=== PATIENT | female | born 1950 | race Two or more races ===

== ENCOUNTER 2018-09-02 17:02 | Emergency (ER) | payer OTHER ==
[~2018-09-02] VITALS: Ht 165.1 cm; Wt 107.5 kg
[~2018-09-02 17:02] MED LIST: ADVAIR 5001 DISK W/1 IH; ASA81 MG PO; ATROVENT 00.5 MG/2.5 IH; CATAPRES0.2 MG PO; HYZAAR 100/25 T1 TAB PO; MEDROL4 MG PO; PROVENTIL0.5 ML/2.5 IH; PROVENTIL3 ML/2.5 M IH; PROVENTIL5 MG/ML IH; SINGULAIR10 MG PO; TUSSIONEX PENNKI5 ML PO; ZITHROMAX500 MG PO
[2018-09-02] MEDS ORDERED: JANUVIA25 MG PO (17:31)
[2018-09-02] MEDS ORDERED: GLUMETZA500 MG (17:31)
[2018-09-02] MEDS ORDERED: ZOCOR20 MG (17:32)
== END 2018-09-02 23:51 | disposition home or self-care (01) ==
LOC: ER 17:02
DX: J11.1 Influenza due to unidentified influenza virus with other respiratory manifestations (principal)

== ENCOUNTER 2018-11-02 14:07 | Outpatient (CLI) | payer OTHER | END 2018-11-02 14:17 | disposition home or self-care (01) | LOC: RAD 14:07 | DX: R07.89 Other chest pain (principal) ==

== ENCOUNTER → 2018-11-02 | Outpatient (CLI) | payer OTHER ==
[~2018-11-02] MED LIST changes: +GLUMETZA500 MG; +JANUVIA25 MG PO; +ZOCOR20 MG
== END | disposition home or self-care (01) ==
LOC: NUCLEAR 11:00
DX: I67.9 Cerebrovascular disease, unspecified (principal); I73.9 Peripheral vascular disease, unspecified; I67.89 Other cerebrovascular disease

== ENCOUNTER 2018-11-07 22:44 | Inpatient (IN) | payer OTHER ==
[~2018-11-07] VITALS: Ht 182.9 cm; Wt 5.0 kg
[2018-11-16] MEDS ORDERED: LOSARTAN-HCTZ1 EACH PO (14:38)
[2018-11-16] MEDS ORDERED: METOPROLOL TART50 MG PO (14:38)
[2018-11-16] MEDS ORDERED: CLONIDINE HCL0.2 MG PO (14:39)
[2018-11-16] MEDS ORDERED: XOPENEX0.63 MG/3 IH (14:40)
[2018-11-16] MEDS ORDERED: BUDEO.25 IH (14:40)
[2018-11-16] MEDS ORDERED: XARELTO20 MG PO (14:48)
[2018-11-16] MEDS ORDERED: GUAIFENESIN AC C5 ML PO (14:48)
== END 2018-11-16 17:22 | disposition home or self-care (01) | DRG 202 ==
LOC: ER 22:44 → MEDJ 11-08 11:26 → ICU-2 11-08 11:26 → MEDJ 11-11 08:34
PROVIDERS: ADMIT Internal Medicine
PROC: 3E0F7GC Introduction of Other Therapeutic Substance into Respiratory Tract, Via Natural or Artificial Opening (ICD-10-PCS; principal; 2018-11-08)
PROC: BB24ZZZ Computerized Tomography (CT Scan) of Bilateral Lungs (ICD-10-PCS; 2018-11-08)
PROC: 4A12X4Z Monitoring of Cardiac Electrical Activity, External Approach (ICD-10-PCS; 2018-11-11)
PROC: B246ZZZ Ultrasonography of Right and Left Heart (ICD-10-PCS; 2018-11-14)
DX: J45.31 Mild persistent asthma with (acute) exacerbation (principal); I50.23 Acute on chronic systolic (congestive) heart failure; N17.8 Other acute kidney failure; J44.1 Chronic obstructive pulmonary disease with (acute) exacerbation; I13.0 Hypertensive heart and chronic kidney disease with heart failure and stage 1 through stage 4 chronic kidney disease, or unspecified chronic kidney disease; J45.32 Mild persistent asthma with status asthmaticus; E11.65 Type 2 diabetes mellitus with hyperglycemia; E66.01 Morbid (severe) obesity due to excess calories; E78.49 Other hyperlipidemia; J09.X2 Influenza due to identified novel influenza A virus with other respiratory manifestations; I48.0 Paroxysmal atrial fibrillation; N18.9 Chronic kidney disease, unspecified

== ENCOUNTER 2019-04-21 18:43 | Emergency (ER) | payer OTHER ==
[~2019-04-21] VITALS: Ht 167.6 cm; Wt 127.0 kg
[~2019-04-21 18:43] MED LIST changes: +BUDEO.25 IH; +CLONIDINE HCL0.2 MG PO; +GUAIFENESIN AC C5 ML PO; +LOSARTAN-HCTZ1 EACH PO; +METOPROLOL TART50 MG PO; +XARELTO20 MG PO; +XOPENEX0.63 MG/3 IH
== END 2019-04-21 23:22 | disposition home or self-care (01) ==
LOC: ER 18:43
DX: J18.8 Other pneumonia, unspecified organism (principal); J45.998 Other asthma

== ENCOUNTER 2019-04-23 23:23 | Inpatient (IN) | payer OTHER ==
[~2019-04-23] VITALS: Ht 167.6 cm; Wt 124.7 kg
== END 2019-05-08 18:13 | disposition home or self-care (01) | DRG 194 ==
LOC: ER 23:23 → MEDJ 04-24 13:40
PROVIDERS: ADMIT Internal Medicine
PROC: 3E0F7GC Introduction of Other Therapeutic Substance into Respiratory Tract, Via Natural or Artificial Opening (ICD-10-PCS; principal; 2019-04-24)
PROC: 4A033R1 Measurement of Arterial Saturation, Peripheral, Percutaneous Approach (ICD-10-PCS; 2019-04-24)
PROC: B54DZZZ Ultrasonography of Bilateral Lower Extremity Veins (ICD-10-PCS; 2019-04-26)
DX: J16.8 Pneumonia due to other specified infectious organisms (principal); J45.32 Mild persistent asthma with status asthmaticus; J44.1 Chronic obstructive pulmonary disease with (acute) exacerbation; J45.21 Mild intermittent asthma with (acute) exacerbation; N17.8 Other acute kidney failure; I13.0 Hypertensive heart and chronic kidney disease with heart failure and stage 1 through stage 4 chronic kidney disease, or unspecified chronic kidney disease; E66.01 Morbid (severe) obesity due to excess calories; I11.0 Hypertensive heart disease with heart failure; I50.9 Heart failure, unspecified; I48.0 Paroxysmal atrial fibrillation; J09.X2 Influenza due to identified novel influenza A virus with other respiratory manifestations; G47.33 Obstructive sleep apnea (adult) (pediatric); N18.9 Chronic kidney disease, unspecified; E11.65 Type 2 diabetes mellitus with hyperglycemia; D64.89 Other specified anemias; E78.49 Other hyperlipidemia; R60.0 Localized edema

== ENCOUNTER 2020-04-02 09:54 | Emergency (ER) | payer OTHER ==
[~2020-04-02] VITALS: Ht 167.6 cm; Wt 133.4 kg
[2020-04-02] MEDS ORDERED: PROAIR HFA8.5 GM (10:52)
[2020-04-02] MEDS ORDERED: ASPIR 8181 MG (10:53)
[2020-04-02] MEDS ORDERED: APRESOLINE 10MG10 MG (10:53)
[2020-04-02] MEDS ORDERED: SINGULAIR10 MG (10:53)
[2020-04-02] MEDS ORDERED: ZOCOR20 MG (10:53)
[2020-04-02] MEDS ORDERED: OMEPRAZOLE20 MG (10:54)
[2020-04-02] MEDS ORDERED: ZITHROMAX500 MG PO (14:09)
[2020-04-02] MEDS ORDERED: MEDROLPACK PO (14:09)
[2020-04-02] MEDS ORDERED: TUSSI PRES-B L480 ML PO (14:09)
[2020-04-02] MEDS ORDERED: TESSALON PERLE100 M1 PO (14:09)
== END 2020-04-02 15:02 | disposition home or self-care (01) ==
LOC: ER 09:54
DX: J45.998 Other asthma (principal); J06.9 Acute upper respiratory infection, unspecified

== ENCOUNTER 2020-11-08 15:57 | Emergency (ER) | payer OTHER ==
[~2020-11-08] VITALS: Ht 167.6 cm; Wt 127.0 kg
[~2020-11-08 15:57] MED LIST changes: +APRESOLINE 10MG10 MG; +ASPIR 8181 MG; +MEDROLPACK PO; +OMEPRAZOLE20 MG; +PROAIR HFA8.5 GM; +SINGULAIR10 MG; +TESSALON PERLE100 M1 PO; +TUSSI PRES-B L480 ML PO
[2020-11-08] MEDS ORDERED: SEMGLEE100 UNIT/1 SUBCUTANEO (16:24)
[2020-11-09] MEDS ORDERED: AMOX-CLAV 875-1 EACH PO (13:39)
[2020-11-09] MEDS ORDERED: ZITHROMAX500 MG PO (13:39)
[2020-11-09] MEDS ORDERED: TESSALON PERLE100 M1 PO (13:39)
[2020-11-09] MEDS ORDERED: OMEGA-31000 MG PO (13:39)
[2020-11-09] MEDS ORDERED: INTESTINEX680 M1 PO (13:39)
[2020-11-09] MEDS ORDERED: MEDROLPACK PO (13:39)
[2020-11-09] MEDS ORDERED: MELATONIN10 MG PO (13:39)
[2020-11-09] MEDS ORDERED: ZINC GLUCONATE100 MG PO (13:39)
[2020-11-09] MEDS ORDERED: VITAMIN D350 MCG PO (13:39)
[2020-11-09] MEDS ORDERED: VITAMIN C500 M6 PO (13:39)
[2020-11-09] MEDS ORDERED: PROAIR RESPICL90 MCG IH (13:40)
== END 2020-11-09 14:43 | disposition home or self-care (01) ==
LOC: ER 15:57
DX: J44.1 Chronic obstructive pulmonary disease with (acute) exacerbation (principal); R09.02 Hypoxemia; R06.02 Shortness of breath; T50.B95A Adverse effect of other viral vaccines, initial encounter; Z20.822 Contact with and (suspected) exposure to COVID-19; Y92.89 Other specified places as the place of occurrence of the external cause

== ENCOUNTER 2020-11-25 19:12 | Emergency (ER) | payer OTHER ==
[~2020-11-25] VITALS: Ht 167.6 cm; Wt 127.0 kg
[~2020-11-25 19:12] MED LIST changes: +AMOX-CLAV 875-1 EACH PO; +INTESTINEX680 M1 PO; +MELATONIN10 MG PO; +OMEGA-31000 MG PO; +PROAIR RESPICL90 MCG IH; +SEMGLEE100 UNIT/1 SUBCUTANEO; +VITAMIN C500 M6 PO; +VITAMIN D350 MCG PO; +ZINC GLUCONATE100 MG PO
[2020-11-25] MEDS ORDERED: SYMBICORT 16010.2 GM IH (23:29)
[2020-11-25] MEDS ORDERED: MUCINEX DM ER1 EAC1 PO (23:29)
== END 2020-11-25 23:43 | disposition home or self-care (01) ==
LOC: ER 19:12
DX: J44.1 Chronic obstructive pulmonary disease with (acute) exacerbation (principal); J45.901 Unspecified asthma with (acute) exacerbation; R04.2 Hemoptysis; Z20.822 Contact with and (suspected) exposure to COVID-19; R05 Cough; R06.02 Shortness of breath; R50.9 Fever, unspecified

== ENCOUNTER 2021-10-20 08:39 | Outpatient (CLI) | payer OTHER ==
[~2021-10-20 08:39] MED LIST changes: +MUCINEX DM ER1 EAC1 PO; +SYMBICORT 16010.2 GM IH
== END 2021-10-20 08:40 | disposition home or self-care (01) ==
LOC: NUCLEAR 08:39
PROVIDERS: ATTEND Internal Medicine Cardiovascular Disease
DX: I67.9 Cerebrovascular disease, unspecified (principal)

== ENCOUNTER 2022-07-08 12:25 | Emergency (ER) | payer OTHER ==
[~2022-07-08] VITALS: Ht 165.1 cm; Wt 117.9 kg
[2022-07-08] MEDS ORDERED: ANALPRAM HC 2.530 GM RECTAL (19:52)
== END 2022-07-08 20:26 | disposition home or self-care (01) ==
LOC: ER 12:25
DX: K64.9 Unspecified hemorrhoids (principal); K62.5 Hemorrhage of anus and rectum; E11.9 Type 2 diabetes mellitus without complications; Z79.84 Long term (current) use of oral hypoglycemic drugs; K57.30 Diverticulosis of large intestine without perforation or abscess without bleeding; Z91.048 Other nonmedicinal substance allergy status

== ENCOUNTER 2023-10-05 11:53 | Emergency (ER) | payer OTHER ==
[~2023-10-05] VITALS: Ht 165.1 cm; Wt 113.4 kg
[~2023-10-05 11:53] MED LIST changes: +ANALPRAM HC 2.530 GM RECTAL
[2023-10-05] MEDS ORDERED: CATAPRES0.3 MG PO (12:42)
[2023-10-05] MEDS ORDERED: ALLOPURINOL100 MG PO (12:44)
[2023-10-05] MEDS ORDERED: TRULICITY1.5 MG/0.5 (12:45)
[2023-10-05] MEDS ORDERED: IPRATROPIUM BROMIDE 0.5 MG/2.5 ML AMPUL.NEB IH SCH (14:45)
[2023-10-05] MEDS ORDERED: LEVALBUTEROL HCL 1.25 MG/3 ML SOLUTION IH SCH (14:45)
[2023-10-05] MEDS ORDERED: GUAIFENESIN/DEXTROMETHORPHAN 100 MG/5 ML ML PO ONE (15:00)
[2023-10-05 15:40] LABS: HEMOGLOBIN 11.7 g/dL (12.0-15.00); MEAN CELL VOLUME 82.8 fL (80.00-100.00); MEAN CORPUSCULAR HEMOGLOBIN 26.9 pg (27.00-32.0); MEAN CORPUSCULAR HGB CONC 32.5 g/dl (32.0-36.0); PLATELET COUNT 320 K/uL (150-450); RED BLOOD COUNT 4.36 M/uL (4.00-6.00); RED CELL DISTRIBUTION WIDTH 17.3 % (11.5-14.5)
[2023-10-05] MEDS ORDERED: PAXLOVID 300-11 EAC1 PO (18:20)
[2023-10-05] MEDS ORDERED: DIABETIC TUSSI118 M3 PO (18:20)
[2023-10-05] MEDS ORDERED: IPRATROPIU0.2 MG/1 M IH (18:20)
[2023-10-05] MEDS ORDERED: XOPENEX CO1.25 MG/0. IH (18:20)
[2023-10-05] MEDS ORDERED: ZYRTEC10 MG PO (18:20)
[2023-10-05 20:00] LABS: ABG PH 7.447 (7.35-7.45); ABG pCO2 33.6 mmHg (35-45)
[2023-10-05 20:01] LABS: BASE EXCESS -0.6 mmol/l; BICARBONATE 22.7 mmol/l (23-25); SaO2 97.8 %; Tco2 23.7 mmol/l; o2 21 %
[2023-10-05 20:02] LABS: allen test SATISFACTORY; puncture site RADIAL RIGHT
== END 2023-10-05 18:41 | disposition home or self-care (01) ==
LOC: ER 11:53
PROVIDERS: Nurse Practitioner Family
DX: U07.1 COVID-19 (principal); J45.909 Unspecified asthma, uncomplicated; E11.9 Type 2 diabetes mellitus without complications; Z79.84 Long term (current) use of oral hypoglycemic drugs; I10 Essential (primary) hypertension; Z88.8 Allergy status to other drugs, medicaments and biological substances

== ENCOUNTER 2024-08-06 13:33 | Emergency (ER) | payer OTHER ==
[~2024-08-06] VITALS: Ht 165.1 cm; Wt 115.7 kg
[~2024-08-06 13:33] MED LIST changes: +ALLOPURINOL100 MG PO; +CATAPRES0.3 M1; +CATAPRES0.3 MG PO; +DIABETIC TUSSI118 M3 PO; +HYDRALAZINE HCL25 MG; +HYZAAR 100-251 UDTAB; +IPRATROPIU0.2 MG/1 M IH; +LEVAQUIN750 MG PO; +METFORMIN HCL500 MG; +PAXLOVID 300-11 EAC1 PO; +TRULICITY1.5 MG/0.5; +XOPENEX CO1.25 MG/0. IH; +XOPENEX1.25 MG/0. IH; +ZOCOR40 MG; +ZYRTEC10 MG PO
[2024-08-06] MEDS ORDERED: BENZONATATE 200 MG CAPSULE PO ONE (16:45)
[2024-08-06] MEDS ORDERED: CEFTRIAXONE SODIUM 1,000 MG VIAL IV ONE (16:45)
[2024-08-06] MEDS ORDERED: FAMOtidine 10 MG/ML (4ML VIAL) IV ONE (16:45)
[2024-08-06] MEDS ORDERED: LEVALBUTEROL HCL 1.25 MG/3 ML SOLUTION IH ONE ×2 (16:45→18:05)
[2024-08-06] MEDS ORDERED: FAMOTIDINE/PF 20 MG/2 ML VIAL ONE ×2 (17:15→17:23)
[2024-08-06] MEDS ORDERED: CEFTRIAXONE SODIUM 1,000 MG VIAL ONE (17:15)
[2024-08-06 18:47] LABS: HEMATOCRIT 38.9 % (36.0-45.00); MEAN CELL VOLUME 86.9 fL (80.00-100.00); MEAN CORPUSCULAR HGB CONC 33.4 g/dl (32.0-36.0); PLATELET COUNT 265 K/uL (150-450); RED BLOOD COUNT 4.48 M/uL (4.00-6.00)
[2024-08-06 19:14] LABS: ALBUMIN 3.3 gm/dL (3.4-5.0); BILIRUBIN TOTAL 0.45 mg/dL (0.3-1.2); CALCIUM 8.8 mg/dL (8.5-10.1); CREATININE SERUM 1.46 mg/dL (0.55-1.02); GFR 35.12; GLOBULINA 4.7 G/DL (2.4-3.5); POTASSIUM 3.33 mEq/L (3.5-5.1)
[2024-08-06] MEDS ORDERED: ONDANSETRON HCL 2 MG/ML VIAL IV ONE (22:30)
[2024-08-06] MEDS ORDERED: ONDANSETRON HCL 2 MG/ML VIAL ONE (22:52)
[2024-08-07 02:07] LABS: PH,URINE 5.5 (5.0-8.0); URINE APPEARANCE Cloudy; URINE BILIRRUBIN Negative (NEGATIVE); URINE BLOOD Negative; URINE COLOR Yellow; URINE GLUCOSE Negative (NEGATIVE); URINE KETONE Negative (NEGATIVE); URINE LEUKOCYTE Negative; URINE NITRATE Negative; URINE UROBILINOGEN 0.2 E.U./dl
[2024-08-07 02:36] LABS: URINE BACTERIA 704.9 uL (0.0-1933); URINE EPITHELIAL CELLS 19.4 uL (0.0-38.8); URINE WBC 6.9 uL (0.0-23.2)
[2024-08-07] MEDS ORDERED: POTASSIUM CHLORIDE/D5-0.9%NACL 1,000 ML IV STA (02:46)
[2024-08-07 02:58] LABS: URINE CAST 1.17 uL (0.0-1.40); URINE PROTEIN 100 (NEGATIVE)
[2024-08-07] MEDS ORDERED: LOPERAMIDE HCL 2 MG CAPSULE PO STA (07:37)
[2024-08-07] MEDS ORDERED: LACTOBACILLUS ACIDOPHILUS 1 CAP CAP PO STA (07:37)
[2024-08-07] MEDS ORDERED: LOPERAMIDE HCL 2 MG CAPSULE PO ONE ×3 (07:46→11:53)
[2024-08-07] MEDS ORDERED: LACTOBACILLUS ACIDOPHILUS 1 CAP CAP PO ONE (07:47)
[2024-08-07] MEDS ORDERED: FAMOTIDINE/PF 20 MG in 0.9 % SODIUM CHLORIDE 8 ML IV PUSH STA (12:59)
[2024-08-07] MEDS ORDERED: CIPROFLOXACIN IN 5 % DEXTROSE 400 MG/200 ML PIGGYBAG IV ONE ×2 (13:15→13:27)
[2024-08-07] MEDS ORDERED: METRONIDAZOLE/SODIUM CHLORIDE 500 MG/100 ML PIGGYBACK IV ONE ×2 (13:15→13:27)
[2024-08-07] MEDS ORDERED: FAMOTIDINE/PF 20 MG/2 ML VIAL ONE (13:27)
== END 2024-08-07 16:25 | disposition home or self-care (01) ==
LOC: ER 13:33
PROVIDERS: General Practice
DX: R19.7 Diarrhea, unspecified (principal); E86.0 Dehydration; R50.9 Fever, unspecified; H53.149 Visual discomfort, unspecified; Z20.822 Contact with and (suspected) exposure to COVID-19; I10 Essential (primary) hypertension; E11.9 Type 2 diabetes mellitus without complications; Z79.84 Long term (current) use of oral hypoglycemic drugs; Z88.8 Allergy status to other drugs, medicaments and biological substances
CPT/HCPCS: 36415; 71046; 74177; 93005; 94640; 96365; 99284; J0696; J0744; J2405; J3490 ×3; Q9965

== ENCOUNTER 2024-09-11 10:56 | Outpatient (CLI) | payer OTHER | END 2024-09-11 10:57 | disposition home or self-care (01) | LOC: NUCLEAR 10:56 | PROVIDERS: ATTEND Internal Medicine | DX: I70.219 Atherosclerosis of native arteries of extremities with intermittent claudication, unspecified extremity (principal); M79.606 Pain in leg, unspecified; M81.0 Age-related osteoporosis without current pathological fracture; I87.2 Venous insufficiency (chronic) (peripheral) ==

== ENCOUNTER 2024-09-19 13:16 | Outpatient (CLI) | payer OTHER | END 2024-09-19 13:21 | disposition home or self-care (01) | LOC: MAMO-SONO 13:16 | PROVIDERS: ATTEND Internal Medicine | DX: N64.81 Ptosis of breast (principal); Z12.31 Encounter for screening mammogram for malignant neoplasm of breast; N60.29 Fibroadenosis of unspecified breast ==

== ENCOUNTER → 2024-09-28 11:29 | Outpatient (CLI) | payer OTHER | END | disposition home or self-care (01) | LOC: NUCLEAR 09-13 10:00 | PROVIDERS: ATTEND Internal Medicine | DX: M79.606 Pain in leg, unspecified (principal); I70.219 Atherosclerosis of native arteries of extremities with intermittent claudication, unspecified extremity ==

== ENCOUNTER 2025-01-02 18:17 | Inpatient (IN) | payer OTHER ==
[~2025-01-02] VITALS: Ht 165.1 cm; Wt 108.9 kg
--- NOTE | 2025-01-02 18:35 | NUR ---
SE RECIBE PTE ALERTA Y ORIENTADA LA CUAL REFIERE VENIR POR DIFICULTAD RESPIRATORIA DESDE HACE VARIAS SEMANAS PTE REFIERE RIZWAN UTILIZADO MULTIPLES TERAPIAS SAIDA NO SIENTE MEJORIAS. SE MIDEN S/V A PTE Y SE UBICA.
[2025-01-02] MEDS ORDERED: MAGNESIUM SULFATE IN WATER 4 GM/100 ML PIGGYBACK IV ONE (19:00)
[2025-01-02] MEDS ORDERED: METHYLPREDNISOLONE SOD SUCC 125 MG VIAL IV ONE (19:00)
[2025-01-02] MEDS ORDERED: LEVALBUTEROL HCL 1.25 MG/3 ML SOLUTION IH SCH (19:00)
[2025-01-02] MEDS ORDERED: FAMOtidine 10 MG/ML (4ML VIAL) IV ONE (19:00)
[2025-01-02] MEDS ORDERED: IPRATROPIUM BROMIDE 0.5 MG/2.5 ML AMPUL.NEB IH SCH (19:00)
[2025-01-02] MEDS ORDERED: CEFTRIAXONE SODIUM 1,000 MG VIAL IV ONE (19:00)
[2025-01-02] MEDS ORDERED: METHYLPREDNISOLONE SOD SUCC 125 MG VIAL ONE (19:47)
[2025-01-02] MEDS ORDERED: FAMOTIDINE/PF 20 MG/2 ML VIAL ONE (19:47)
[2025-01-02] MEDS ORDERED: CEFTRIAXONE SODIUM 1,000 MG VIAL ONE (19:47)
[2025-01-02 20:09] LABS: BASO % 0.4 % (0.1-1.2); EOS # 0.06 (0.04-0.54); EOS % 1.3 % (0.7-7.0); HEMATOCRIT 36.7 % (34.1-44.9); HEMOGLOBIN 11.7 g/dL (11.2-15.7); LYMPH # 1.19 (1.18-3.74); LYMPH % 25.1 % (19.3-53.1); MEAN CORPUSCULAR HEMOGLOBIN 27.9 pg (25.6-32.2); MONO # 0.55 (0.24-0.82); MONO % 11.6 % (4.7-12.5); NEUT # 2.91 (1.56-6.13); NEUT % 61.4 % (34.0-71.1); PLATELET COUNT 254 K/uL (163-369); RED CELL DISTRIBUTION WIDTH 16.1 % (11.6-14.4)
--- NOTE | 2025-01-02 20:22 | NUR ---
ESTHER MACIAS ORIENTA PTE SOBRE TX, REFIERE ENTENDER Y ACEPTAR. LE CATHERINE MUESTRAS DE LABORATORIO, LE CANALIZA Y ADMINISTRA MEDS.
--- NOTE | 2025-01-02 20:22 | NUR ---
PACIENTE ALERTA Y ORIENTADA X3. SE EDUCA A PACIENTE SOBRE PROCESO DE CATHERINE DE MUESTRAS, CANALIZACION Y ADMINISTRACION DE MEDICAMENTOS, REFIERE ENTENDER. SE EJECUTAN ORDENES BAJO MEDIDAS ASEPTICAS.
[2025-01-02 20:29] LABS: INR 1.04; PARTIAL THROMBOPLASTIN TIME 27.9 SECONDS (22.0-34.0); PROTHROMBIN TIME 11.3 SECONDS (9.0-11.5)
[2025-01-02 20:35] LABS: ALBUMIN 3.4 gm/dL (3.4-5.0); BILIRUBIN TOTAL 0.35 mg/dL (0.3-1.2); CALCIUM 9.1 mg/dL (8.5-10.1); CREATININE SERUM 1.31 mg/dL (0.55-1.02); GFR 39.8; POTASSIUM 4.18 mEq/L (3.5-5.1); TOTAL PROTEIN 7.4 gm/dL (6.4-8.2)
[2025-01-02] MEDS ORDERED: LEVALBUTEROL HCL 0.63 MG/3 ML SOLUTION IH ONE (20:38)
[2025-01-02] MEDS ORDERED: IPRATROPIUM BROMIDE 0.5 MG/2.5 ML AMPUL.NEB IH ONE (20:38)
[2025-01-02 21:46] LABS: PH,URINE 6.5 (5.0-8.0); URINE APPEARANCE Clear; URINE BILIRRUBIN Negative (NEGATIVE); URINE BLOOD Negative; URINE COLOR Yellow; URINE GLUCOSE Negative (NEGATIVE); URINE KETONE Negative (NEGATIVE); URINE LEUKOCYTE Negative; URINE NITRATE Negative; URINE UROBILINOGEN 0.2 E.U./dl
[2025-01-02 21:51] LABS: URINE BACTERIA 101.5 uL (0.0-1933); URINE EPITHELIAL CELLS 18.1 uL (0.0-38.8); URINE RBC 2.3 uL (0.0-20.8); URINE WBC 4.9 uL (0.0-23.2)
[2025-01-02 21:56] LABS: URINE PROTEIN 300 (NEGATIVE)
[2025-01-02 22:04] LABS: ABG PH 7.434 (7.35-7.45); ABG pCO2 35.3 mmHg (35-45); SaO2 96.7 %
[2025-01-02 22:05] LABS: BASE EXCESS -0.6 mmol/l; BICARBONATE 23.1 mmol/l (23-25); Tco2 24.2 mmol/l; allen test SATISFACTORY; mode ROOM AIR; o2 21 %; puncture site RADIAL RIGHT
[2025-01-02 22:06] LABS: ABG PO2 84.8 mmHg (80-100)
[2025-01-03] MEDS ORDERED: CEFTRIAXONE SODIUM 2,000 MG in 0.9 % SODIUM CHLORIDE 100 ML IV SCH ×2 (00:07→21:00)
[2025-01-03] MEDS ORDERED: FAMOTIDINE/PF 20 MG in 0.9 % SODIUM CHLORIDE 8 ML IV PUSH SCH (00:08)
[2025-01-03] MEDS ORDERED: AZITHROMYCIN 500 MG in DEXTROSE 5 % IN WATER 250 ML IV SCH ×2 (00:08→21:00)
[2025-01-03] MEDS ORDERED: INSULIN LISPRO 1,000 UNIT/10 ML UNITS SUBCUTANEO PRN (00:15)
[2025-01-03] MEDS ORDERED: ACETAMINOPHEN 500 MG GEL..CAP PO PRN (00:15)
[2025-01-03] MEDS ORDERED: hydrALAZINE HCL 20 MG VIAL IV PRN (00:15)
[2025-01-03] MEDS ORDERED: DEXTROSE 50 % IN WATER 0.5 G/ML DISP.SYRIN IV PRN (00:15)
[2025-01-03] MEDS ORDERED: 0.9 % SODIUM CHLORIDE 1,000 ML IV SCH (00:15)
[2025-01-03] MEDS ORDERED: CEFTRIAXONE SODIUM 2,000 MG VIAL ONE (00:30)
[2025-01-03] MEDS ORDERED: METHYLPREDNISOLONE SOD SUCC 40 MG VIAL ONE (00:30)
[2025-01-03] MEDS ORDERED: FAMOTIDINE/PF 20 MG/2 ML VIAL ONE (00:30)
[2025-01-03] MEDS ORDERED: AZITHROMYCIN 500 MG VIAL IV ONE ×2 (00:30→21:29)
[2025-01-03 00:48] LABS: COVID-19 AG NEGATIVE (NEGATIVE); INFLUENZA A AG NEGATIVE (NEGATIVE); INFLUENZA B AG NEGATIVE (NEGATIVE)
[2025-01-03] MEDS ORDERED: METHYLPREDNISOLONE SOD SUCC 40 MG VIAL IV SCH ×2 (01:00→21:00)
[2025-01-03] MEDS ORDERED: IPRATROPIUM BROMIDE 0.5 MG/2.5 ML AMPUL.NEB IH SCH (01:00)
[2025-01-03] MEDS ORDERED: GUAIFEN/DEXTROMETHORPHAN/PE 10 ML BLIST.PACK PO SCH (01:00)
[2025-01-03] MEDS ORDERED: LEVALBUTEROL HCL 1.25 MG/3 ML SOLUTION IH SCH (01:00)
[2025-01-03 08:00] VITALS: BP 142/84; O2SAT 99
[2025-01-03] MEDS ORDERED: METHYLPREDNISOLONE SOD SUCC 125 MG VIAL IV SCH (09:00)
[2025-01-03] MEDS ORDERED: LOSARTAN/HYDROCHLOROTHIAZIDE 1 TAB TABLET PO SCH (09:00)
[2025-01-03] MEDS ORDERED: ENOXAPARIN SODIUM 40 MG/0.4 ML SYRINGE SUBCUTANEO SCH (09:00)
[2025-01-03 16:00] VITALS: BP 192/69; O2SAT 100
[2025-01-03] MEDS ORDERED: SIMVASTATIN 20 MG TABLET PO SCH (17:00)
[2025-01-03] MEDS ORDERED: MONTELUKAST SODIUM 10 MG TABLET PO SCH (17:00)
[2025-01-04 01:08] VITALS: BP 152/86; O2SAT 99
[2025-01-04 08:00] VITALS: BP 144/69; O2SAT 98
[2025-01-04] MEDS ORDERED: METHYLPREDNISOLONE SOD SUCC 40 MG VIAL IV SCH (09:00)
[2025-01-04 11:25] LABS: ALBUMIN 3.1 gm/dL (3.4-5.0); BILIRUBIN TOTAL 0.29 mg/dL (0.3-1.2); CALCIUM 8.9 mg/dL (8.5-10.1); CREATININE SERUM 1.27 mg/dL (0.55-1.02); GFR 41.25; POTASSIUM 3.73 mEq/L (3.5-5.1); TOTAL PROTEIN 7.1 gm/dL (6.4-8.2)
[2025-01-04 12:07] LABS: MYCOPLASMA PNEUMONIAE IGM NON REACTIVE (NO REACTIVE)
[2025-01-04 16:00] VITALS: BP 171/78; O2SAT 100
[2025-01-04] MEDS ORDERED: AZITHROMYCIN 500 MG VIAL IV ONE (19:39)
[2025-01-04] MEDS ORDERED: LINEZOLID 600 MG TABLET PO SCH (21:00)
[2025-01-04] MEDS ORDERED: CLONAZEPAM 1 MG TABLET PO SCH (21:00)
[2025-01-04] MEDS ORDERED: AZITHROMYCIN 500 MG VIAL IV SCH (21:00)
[2025-01-05 00:30] VITALS: BP 165/76; O2SAT 99
[2025-01-05] MEDS ORDERED: METHYLPREDNISOLONE SOD SUCC 125 MG VIAL IV ONE (07:45)
[2025-01-05 08:00] VITALS: BP 134/75; O2SAT 98
[2025-01-05] MEDS ORDERED: AZITHROMYCIN 500 MG VIAL IV ONE (15:09)
[2025-01-05 16:42] VITALS: BP 148/80; O2SAT 100
[2025-01-06 00:43] VITALS: BP 176/90; O2SAT 95
[2025-01-06 08:00] VITALS: BP 187/76; O2SAT 97
[2025-01-06 08:37] LABS: BASO % 0.5 % (0.1-1.2); HEMATOCRIT 37.3 % (34.1-44.9); HEMOGLOBIN 11.7 g/dL (11.2-15.7); LYMPH # 2.85 (1.18-3.74); LYMPH % 26.4 % (19.3-53.1); MEAN CORPUSCULAR HEMOGLOBIN 26.8 pg (25.6-32.2); MONO # 0.43 (0.24-0.82); NEUT # 7.36 (1.56-6.13); NEUT % 68.1 % (34.0-71.1); PLATELET COUNT 320 K/uL (163-369); RED BLOOD COUNT 4.37 M/uL (3.93-5.22); RED CELL DISTRIBUTION WIDTH 15.9 % (11.6-14.4)
[2025-01-06] MEDS ORDERED: FAMOtidine 20 MG TABLET PO SCH (09:00)
[2025-01-06 09:11] LABS: CALCIUM 8.6 mg/dL (8.5-10.1); CREATININE SERUM 1.26 mg/dL (0.55-1.02); GFR 41.62; MAGNESIUM 1.8 mg/dL (1.8-2.4); POTASSIUM 4.33 mEq/L (3.5-5.1)
[2025-01-06] MEDS ORDERED: AZITHROMYCIN 500 MG VIAL IV ONE (14:19)
[2025-01-06 16:00] VITALS: BP 150/85; O2SAT 96
[2025-01-06] MEDS ORDERED: AMLODIPINE BESYLATE 5 MG TABLET PO SCH (17:00)
[2025-01-07 00:58] VITALS: BP 178/75; O2SAT 96
[2025-01-07 08:20] VITALS: BP 146/85; BP 166/60; O2SAT 100; O2SAT 95
[2025-01-07] MEDS ORDERED: hydrALAZINE HCL 25 MG TABLET PO SCH (09:00)
[2025-01-07] MEDS ORDERED: hydrALAZINE HCL 50 MG TABLET PO SCH (13:00)
[2025-01-07] MEDS ORDERED: AZITHROMYCIN 500 MG VIAL IV ONE (15:34)
[2025-01-07 16:00] VITALS: BP 190/90; O2SAT 100
[2025-01-07] MEDS ORDERED: AMLODIPINE BESYLATE 5 MG TABLET PO SCH (17:00)
[2025-01-07 20:00] VITALS: BP 162/90; O2SAT 99
[2025-01-07] MEDS ORDERED: METHYLPREDNISOLONE SOD SUCC 40 MG VIAL IV SCH (21:00)
[2025-01-08] VITALS (8 sets, daily range): BP systolic 164–187; BP diastolic 70–84; O2SAT 92–100
[2025-01-08] MEDS ORDERED: PANTOPRAZOLE SODIUM 40 MG TABLET.DR PO SCH (09:00)
[2025-01-08] MEDS ORDERED: FAMOtidine 20 MG TABLET PO SCH (21:00)
[2025-01-09] VITALS (8 sets, daily range): BP systolic 149–182; BP diastolic 77–83; O2SAT 87–98
[2025-01-09] MEDS ORDERED: ONDANSETRON HCL 2 MG/ML VIAL IV PRN (09:45)
[2025-01-09] MEDS ORDERED: DIATRIZOATE MEGLUMINE, SODIUM 30 ML BOTTLE PO NR (10:30)
[2025-01-09 10:42] LABS: ALBUMIN 3.4 gm/dL (3.4-5.0); BILIRUBIN TOTAL 0.38 mg/dL (0.3-1.2); CALCIUM 9.4 mg/dL (8.5-10.1); CREATININE SERUM 1.59 mg/dL (0.55-1.02); GFR 31.82; POTASSIUM 3.89 mEq/L (3.5-5.1); TOTAL PROTEIN 7.4 gm/dL (6.4-8.2)
[2025-01-09] MEDS ORDERED: NIFEDIPINE 60 MG TAB.SA.OSM PO SCH (12:14)
[2025-01-09 12:22] LABS: BASO % 0.2 % (0.1-1.2); HEMATOCRIT 39.5 % (34.1-44.9); HEMOGLOBIN 12.6 g/dL (11.2-15.7); LYMPH # 1.59 (1.18-3.74); LYMPH % 15.9 % (19.3-53.1); MEAN CORPUSCULAR HEMOGLOBIN 27.2 pg (25.6-32.2); MONO # 0.66 (0.24-0.82); MONO % 6.6 % (4.7-12.5); NEUT # 7.48 (1.56-6.13); NEUT % 75.1 % (34.0-71.1); PLATELET COUNT 330 K/uL (163-369); RED BLOOD COUNT 4.63 M/uL (3.93-5.22); RED CELL DISTRIBUTION WIDTH 15.8 % (11.6-14.4)
[2025-01-10] VITALS (8 sets, daily range): BP systolic 138–149; BP diastolic 62–84; O2SAT 75–100
[2025-01-10] MEDS ORDERED: HYOSCYAMINE SULFATE 0.125 MG TAB.SUBL SL PRN (16:00)
[2025-01-10] MEDS ORDERED: CLOTRIMAZOLE 10 MG TROCHE MM SCH (17:00)
[2025-01-11] VITALS (7 sets, daily range): BP systolic 120–178; BP diastolic 68–83; O2SAT 96–98
[2025-01-11] MEDS ORDERED: NIFEDIPINE 90 MG TAB.SA.OSM PO SCH (09:00)
[2025-01-11] MEDS ORDERED: INSULIN NPH HUM/REG INSULIN HM 1,000 UNIT/10 ML UNITS SUBCUTANEO SCH (09:00)
[2025-01-11] MEDS ORDERED: SODIUM CHLORIDE FOR INHALATION 1 VIAL.NEB IH NR (11:00)
[2025-01-11 13:45] LABS: BASO % 0.2 % (0.1-1.2); HEMATOCRIT 41.6 % (34.1-44.9); HEMOGLOBIN 13.6 g/dL (11.2-15.7); LYMPH # 1.01 (1.18-3.74); LYMPH % 11.6 % (19.3-53.1); MEAN CORPUSCULAR HEMOGLOBIN 27.2 pg (25.6-32.2); MONO # 0.39 (0.24-0.82); MONO % 4.5 % (4.7-12.5); NEUT # 7.12 (1.56-6.13); NEUT % 81.4 % (34.0-71.1); PLATELET COUNT 324 K/uL (163-369); RED CELL DISTRIBUTION WIDTH 15.9 % (11.6-14.4)
[2025-01-11] MEDS ORDERED: METHYLPREDNISOLONE SOD SUCC 40 MG VIAL IV SCH (17:00)
[2025-01-11] MEDS ORDERED: SODIUM CHLORIDE FOR INHALATION 1 VIAL.NEB IH SCH (21:00)
[2025-01-12] VITALS (8 sets, daily range): BP systolic 150–164; BP diastolic 64–73; O2SAT 94–100
[2025-01-12] MEDS ORDERED: INSULIN NPH HUM/REG INSULIN HM 1,000 UNIT/10 ML UNITS SUBCUTANEO SCH (08:00)
[2025-01-12 08:27] LABS: ALBUMIN 3.6 gm/dL (3.4-5.0); BILIRUBIN TOTAL 0.43 mg/dL (0.3-1.2); CALCIUM 9.4 mg/dL (8.5-10.1); CREATININE SERUM 1.65 mg/dL (0.55-1.02); GFR 30.49; POTASSIUM 4.56 mEq/L (3.5-5.1); TOTAL PROTEIN 7.6 gm/dL (6.4-8.2)
[2025-01-12] MEDS ORDERED: LOSARTAN/HYDROCHLOROTHIAZIDE 1 UDTAB TABLET PO SCH (09:00)
[2025-01-12] MEDS ORDERED: FLUCONAZOLE IN NACL,ISO-OSM 200 MG/100 ML PIGGYBAG IV NR (18:15)
[2025-01-13] VITALS (10 sets, daily range): BP systolic 133–141; BP diastolic 70–80; O2SAT 96–99
[2025-01-13] MEDS ORDERED: FLUCONAZOLE IN NACL,ISO-OSM 50 ML IV SCH (17:00)
[2025-01-13] MEDS ORDERED: FLUCONAZOLE IN NACL,ISO-OSM 2 MG/ML ML IV SCH (17:00)
[2025-01-14 00:59] VITALS: BP 138/82; O2SAT 98
[2025-01-14 01:55] VITALS: O2SAT 90
[2025-01-14 06:01] VITALS: O2SAT 90
[2025-01-14 07:26] LABS: CALCIUM 9.2 mg/dL (8.5-10.1); CREATININE SERUM 1.56 mg/dL (0.55-1.02); GFR 32.53; MAGNESIUM 1.5 mg/dL (1.8-2.4); PHOSPHOROUS 3.4 mg/dL (2.5-4.9); POTASSIUM 4.29 mEq/L (3.5-5.1)
[2025-01-14] MEDS ORDERED: INSULIN NPH HUM/REG INSULIN HM 1,000 UNIT/10 ML UNITS SUBCUTANEO SCH ×2 (08:00→17:00)
[2025-01-14 08:15] LABS: BASO % 0.2 % (0.1-1.2); HEMATOCRIT 36.4 % (34.1-44.9); HEMOGLOBIN 11.7 g/dL (11.2-15.7); LYMPH # 1.56 (1.18-3.74); LYMPH % 15.6 % (19.3-53.1); MEAN CORPUSCULAR HEMOGLOBIN 27.3 pg (25.6-32.2); MONO # 0.61 (0.24-0.82); MONO % 6.1 % (4.7-12.5); NEUT % 76.1 % (34.0-71.1); PLATELET COUNT 238 K/uL (163-369); RED BLOOD COUNT 4.28 M/uL (3.93-5.22); RED CELL DISTRIBUTION WIDTH 16.4 % (11.6-14.4)
[2025-01-14 08:21] VITALS: BP 156/84; O2SAT 100
[2025-01-14 08:54] LABS: URINE APPEARANCE Clear; URINE BILIRRUBIN Negative (NEGATIVE); URINE BLOOD Negative; URINE COLOR Yellow; URINE GLUCOSE Negative (NEGATIVE); URINE KETONE Negative (NEGATIVE); URINE LEUKOCYTE Negative; URINE NITRATE Negative; URINE UROBILINOGEN 0.2 E.U./dl
[2025-01-14 09:05] LABS: URINE BACTERIA 0 uL (0.0-1933); URINE EPITHELIAL CELLS 0.4 uL (0.0-38.8); URINE PROTEIN 100 (NEGATIVE); URINE RBC 1.3 uL (0.0-20.8); URINE WBC 0.6 uL (0.0-23.2)
[2025-01-14] MEDS ORDERED: MAGNESIUM SULFATE IN WATER 50 ML IV NR (09:30)
[2025-01-14 16:00] VITALS: BP 138/84; O2SAT 98
[2025-01-15 00:25] VITALS: BP 147/84; O2SAT 100
[2025-01-15 06:52] LABS: CREATININE SERUM 1.31 mg/dL (0.55-1.02); GFR 39.8; MAGNESIUM 1.9 mg/dL (1.8-2.4); POTASSIUM 4.39 mEq/L (3.5-5.1)
[2025-01-15 08:52] VITALS: BP 150/71; O2SAT 96
[2025-01-15] MEDS ORDERED: hydrALAZINE HCL 50 MG TABLET PO SCH (09:00)
[2025-01-15] MEDS ORDERED: METHYLPREDNISOLONE SOD SUCC 40 MG VIAL IV SCH (09:00)
[2025-01-15 16:00] VITALS: BP 154/85; O2SAT 94
[2025-01-15 17:03] VITALS: O2SAT 100
[2025-01-16 00:36] VITALS: O2SAT 98
[2025-01-16 00:42] VITALS: BP 137/70; O2SAT 97
[2025-01-16 03:24] VITALS: O2SAT 90
[2025-01-16 07:43] LABS: BASO % 0.2 % (0.1-1.2); HEMATOCRIT 38.7 % (34.1-44.9); HEMOGLOBIN 12.6 g/dL (11.2-15.7); LYMPH # 2.61 (1.18-3.74); LYMPH % 22.5 % (19.3-53.1); MEAN CORPUSCULAR HEMOGLOBIN 27.1 pg (25.6-32.2); MONO # 0.84 (0.24-0.82); MONO % 7.2 % (4.7-12.5); NEUT # 8.02 (1.56-6.13); NEUT % 69.2 % (34.0-71.1); PLATELET COUNT 234 K/uL (163-369); RED BLOOD COUNT 4.65 M/uL (3.93-5.22); RED CELL DISTRIBUTION WIDTH 16.8 % (11.6-14.4)
[2025-01-16 08:34] LABS: ALBUMIN 3.3 gm/dL (3.4-5.0); ALKALINE PHOSPHATASE 81 U/L (50-136); ALT/SGPT 51 U/L (12-78); ANION GAP 9 (10.0-20.0); AST/SGOT 19 U/L (15-37); BILIRUBIN TOTAL 0.38 mg/dL (0.3-1.2); BLOOD UREA NITROGEN 44 mg/dL (7-18); BUN CREA RATIO 30 (7.0-25.0); CALCIUM 9.5 mg/dL (8.5-10.1); CARBON DIOXIDE 28 mEq/L (21-32); CHLORIDE 108 mmol/L (98-107); CREATININE SERUM 1.45 mg/dL (0.55-1.02); GLOBULINA 3.3 G/DL (2.4-3.5); GLUCOSE FASTING 101 mg/dL (65-100); OSMOLALITY SERUM 293 MOSM/KG (275-295); PHOSPHOROUS 3.6 mg/dL (2.5-4.9); POTASSIUM 4.36 mEq/L (3.5-5.1); SODIUM 141 mmol/L (136-145); TOTAL PROTEIN 6.6 gm/dL (6.4-8.2)
[2025-01-16 08:35] LABS: C-REACTIVE PROTEIN < 0.29 MG/DL (0.00-0.29)
[2025-01-16 09:07] VITALS: BP 143/83; O2SAT 98
[2025-01-16] MEDS ORDERED: INSULIN NPH HUM/REG INSULIN HM 1,000 UNIT/10 ML UNITS SUBCUTANEO SCH (09:15)
[2025-01-16] MEDS ORDERED: METHYLPREDNISOLONE SOD SUCC 40 MG VIAL IV SCH (10:25)
[2025-01-16] MEDS ORDERED: LEVALBUTEROL HCL 0.63 MG/3 ML SOLUTION IH SCH (12:00)
[2025-01-16] MEDS ORDERED: IPRATROPIUM/ALBUTEROL SULFATE 3 ML AMPUL.NEB IH SCH (12:00)
[2025-01-16 13:22] VITALS: O2SAT 96
[2025-01-16] MEDS ORDERED: BUDESONIDE 0.5 MG/2 ML AMPUL.NEB IH SCH ×2 (17:00→21:00)
[2025-01-16] MEDS ORDERED: IPRAT-ALBUT 0.5-3 ML IH (18:12)
[2025-01-16] MEDS ORDERED: LOSARTAN-HCTZ1 EAC2 PO (18:13)
[2025-01-16] MEDS ORDERED: MONTELUKAST SOD10 MG PO (18:14)
[2025-01-16] MEDS ORDERED: HYDRALAZINE HCL50 MG PO (18:14)
[2025-01-16] MEDS ORDERED: PROCARDIA XL90 MG PO (18:14)
[2025-01-16] MEDS ORDERED: FAMOTIDINE20 MG PO (18:15)
[2025-01-16] MEDS ORDERED: PANTOPRAZOLE SO40 MG PO (18:15)
[2025-01-16] MEDS ORDERED: MEDROLPACK PO (18:15)
== END 2025-01-16 18:56 | disposition home or self-care (01) | DRG 194 ==
LOC: ER 18:17 → SURH 01-03 00:10 → SEC-K 01-03 00:10 → SURH 01-03 01:56
PROVIDERS: General Practice; Internal Medicine; Internal Medicine Infectious Disease; ADMIT Internal Medicine; ATTEND Internal Medicine
PROC: BW24ZZZ Computerized Tomography (CT Scan) of Chest and Abdomen (ICD-10-PCS; 2025-01-02)
PROC: 02HV33Z Insertion of Infusion Device into Superior Vena Cava, Percutaneous Approach (ICD-10-PCS; principal; 2025-01-08)
PROC: 4A12X4Z Monitoring of Cardiac Electrical Activity, External Approach (ICD-10-PCS; 2025-01-08)
PROC: BW21YZZ Computerized Tomography (CT Scan) of Abdomen and Pelvis using Other Contrast (ICD-10-PCS; 2025-01-09)
DX: J18.9 Pneumonia, unspecified organism (principal); J44.1 Chronic obstructive pulmonary disease with (acute) exacerbation; J45.901 Unspecified asthma with (acute) exacerbation; N17.9 Acute kidney failure, unspecified; J45.909 Unspecified asthma, uncomplicated; E11.9 Type 2 diabetes mellitus without complications; Z79.4 Long term (current) use of insulin; J44.9 Chronic obstructive pulmonary disease, unspecified; I11.0 Hypertensive heart disease with heart failure; I50.9 Heart failure, unspecified; D72.829 Elevated white blood cell count, unspecified; E66.01 Morbid (severe) obesity due to excess calories

== ENCOUNTER 2025-03-01 10:46 | Outpatient (CLI) | payer OTHER ==
[~2025-03-01 10:46] MED LIST changes: +FAMOTIDINE20 MG PO; +HYDRALAZINE HCL50 MG PO; +IPRAT-ALBUT 0.5-3 ML IH; +LOSARTAN-HCTZ1 EAC2 PO; +MONTELUKAST SOD10 MG PO; +PANTOPRAZOLE SO40 MG PO; +PROCARDIA XL90 MG PO
[2025-03-01 11:19] LABS: BASO % 0.3 % (0.1-1.2); EOS # 0.07 (0.04-0.54); EOS % 1.0 % (0.7-7.0); LYMPH # 1.50 (1.18-3.74); LYMPH % 22.1 % (19.3-53.1); MEAN PLATELET VOLUME 9.40 fl (9.4-12.4); MONO # 0.41 (0.24-0.82); MONO % 6.0 % (4.7-12.5); NEUT # 4.77 (1.56-6.13); NEUT % 70.3 % (34.0-71.1); RED CELL DISTRIBUTION WIDTH 17.2 % (11.6-14.4)
[2025-03-01 11:31] LABS: URINE BACTERIA 5022.0 uL (0.0-1933); URINE CAST 2.93 uL (0.0-1.40); URINE EPITHELIAL CELLS 191.5 uL (0.0-38.8); URINE RBC 2.7 uL (0.0-20.8); URINE WBC 15.8 uL (0.0-23.2)
[2025-03-01 11:40] LABS: URINE APPEARANCE Cloudy; URINE BILIRRUBIN Negative (NEGATIVE); URINE BLOOD Negative; URINE COLOR Yellow; URINE GLUCOSE Negative (NEGATIVE); URINE KETONE Negative (NEGATIVE); URINE LEUKOCYTE Negative; URINE NITRATE Negative; URINE UROBILINOGEN 0.2 E.U./dl
[2025-03-01 11:53] LABS: INR 1.01
[2025-03-01 12:36] LABS: BUN CREA RATIO 19.0 (7.0-25.0); CREATININE SERUM 1.49 mg/dL (0.55-1.02); GFR 34.3; GLUCOSE FASTING 102.0 mg/dL (65-100); OSMOLALITY SERUM 289.0 MOSM/KG (275-295)
[2025-03-01 12:45] LABS: URINE PROTEIN 100 (NEGATIVE)
== END 2025-03-01 10:54 | disposition home or self-care (01) ==
LOC: RAD 10:46
PROVIDERS: ATTEND Ophthalmology
DX: E11.39 Type 2 diabetes mellitus with other diabetic ophthalmic complication (principal); I15.8 Other secondary hypertension; D68.32 Hemorrhagic disorder due to extrinsic circulating anticoagulants; D69.9 Hemorrhagic condition, unspecified; Z01.818 Encounter for other preprocedural examination

== ENCOUNTER 2025-03-09 10:50 | Outpatient (CLI) | payer OTHER | END 2025-03-09 10:51 | disposition home or self-care (01) | LOC: NUCLEAR 10:50 | PROVIDERS: ATTEND Internal Medicine | DX: R60.0 Localized edema (principal) ==

== ENCOUNTER 2025-05-14 11:21 | Outpatient (CLI) | payer OTHER ==
[2025-05-14 12:13] LABS: BASO % 0.7 % (0.1-1.2); EOS # 0.09 (0.04-0.54); EOS % 2.0 % (0.7-7.0); LYMPH # 1.15 (1.18-3.74); LYMPH % 26.0 % (19.3-53.1); MEAN PLATELET VOLUME 9.90 fl (9.4-12.4); MONO # 0.30 (0.24-0.82); MONO % 6.8 % (4.7-12.5); NEUT # 2.85 (1.56-6.13); NEUT % 64.3 % (34.0-71.1); RED CELL DISTRIBUTION WIDTH 15.4 % (11.6-14.4)
[2025-05-14 12:14] LABS: URINE APPEARANCE Clear; URINE BILIRRUBIN Negative (NEGATIVE); URINE BLOOD Negative; URINE COLOR Yellow; URINE GLUCOSE Negative (NEGATIVE); URINE KETONE Trace (NEGATIVE); URINE LEUKOCYTE Trace; URINE NITRATE Negative; URINE UROBILINOGEN 1.0 E.U./dl
[2025-05-14 12:17] LABS: URINE BACTERIA 788.2 uL (0.0-1933); URINE CAST 3.81 uL (0.0-1.40); URINE EPITHELIAL CELLS 31.3 uL (0.0-38.8); URINE RBC 3.3 uL (0.0-20.8); URINE WBC 6.7 uL (0.0-23.2)
[2025-05-14 12:33] LABS: ERYTHROCYTE SEDIMENTATION RATE 74 mm/hr (0-30)
[2025-05-14 12:34] LABS: URINE PROTEIN 100 (NEGATIVE)
[2025-05-14 12:45] LABS: ALT/SGPT 24.0 U/L (12-78); AST/SGOT 20.0 U/L (15-37); BILIRUBIN TOTAL 0.43 mg/dL (0.3-1.2); BUN CREA RATIO 21.0 (7.0-25.0); CHOL HDL RATIO 2.0 (0-5.0); CREATININE SERUM 1.53 mg/dL (0.55-1.02); FREE TRIODOTIRONINE 2.73 pg/ml (2.18-3.98); GFR 33.27; GLOBULINA 3.5 G/DL (2.4-3.5); GLUCOSE FASTING 118.0 mg/dL (65-100); HDL 75.0 mg/dl (40-60); LDL 59.0 mg/dl (0-130); OSMOLALITY SERUM 286.0 MOSM/KG (275-295); T4 TOTAL 10.93 UG/DL (4.8-13.9); TSH 1.92 uIU/mL (0.358-3.74); VLDL 15.0 (0-39)
== END 2025-05-14 11:28 | disposition home or self-care (01) ==
LOC: LAB 11:21
PROVIDERS: ATTEND Internal Medicine
DX: E55.9 Vitamin D deficiency, unspecified (principal); M10.9 Gout, unspecified; E11.8 Type 2 diabetes mellitus with unspecified complications; I11.9 Hypertensive heart disease without heart failure; D64.9 Anemia, unspecified; Z12.11 Encounter for screening for malignant neoplasm of colon; E03.9 Hypothyroidism, unspecified